=== PATIENT | male | born 1995 | race Caucasian/White ===

== ENCOUNTER → 2017-12-03 | Outpatient (CLI) | payer OTHER ==
[2014-12-03 01:17] VITALS: BP 104/67
[~2017-12-03] MED LIST: MINOCYCLINE HC100 M1 PO
== END ==
LOC: LAB 09:55
DX: Z02.0 Encounter for examination for admission to educational institution (principal)

== ENCOUNTER → 2017-12-12 | Outpatient (CLI) | payer OTHER ==
[2014-12-03 01:17] VITALS: BP 104/67
[2017-12-13 00:18] LABS: HEPATITIS B SURFACE ANTIBODY 29.3 (())
== END ==
LOC: LAB 16:17
PROVIDERS: Internal Medicine
DX: Z02.0 Encounter for examination for admission to educational institution (principal)